=== PATIENT | male | born 1955 | race Caucasian/White ===

== ENCOUNTER 2018-06-08 16:10 | Inpatient (IN) | payer MEDICARE ==
[~2018-06-08] VITALS: Ht 188 cm; Wt 84.8 kg
[2018-06-08] MEDS ORDERED: APAP325 MG PO (16:14)
[2018-06-08] MEDS ORDERED: IPRAT-ALBUT 0.5-3 ML UPD (16:14)
[2018-06-08] MEDS ORDERED: COLACE100 MG PO (16:14)
[2018-06-08] MEDS ORDERED: IMODIUM2 MG PO (16:14)
[2018-06-08] MEDS ORDERED: THIAMINE HCL100 MG PO (16:15)
[2018-06-08] MEDS ORDERED: VENTOLIN HFA18 GM INH (16:15)
[2018-06-08 17:05] LABS: BASOPHILS 0.5 % (0-2); EOSINOPHILS 0.3 % (0-7); HEMOGLOBIN 16.3 g/dL (13.5-17.5); IMMATURE GRANULOCYTES 0.1 % (0-5); LYMPHOCYTES 9.7 % (15-50); MCH 32.3 pg (26.0-34.0); MCHC 34.7 g/dL (31.0-37.0); MCV 93.3 fL (80.0-100.0); MEAN PLATELET VOLUME 9.5 fL (7.4-10.4); MONOCYTES 11.8 % (2-11); NEUTROPHILS 77.6 % (40-80); PLATELET COUNT 183 10x3/uL (130-400); RBC 5.04 10x6/uL (4.20-6.10); RDW 13.5 % (11.5-14.5); WBC 9.8 10x3/uL (4.8-10.8)
[2018-06-08 17:16] LABS: APTT 25.7 SECONDS (22.8-39.4); INR 1.25 (0.85-1.17); PROTIME 15.2 SECONDS (11.6-15.0)
[2018-06-08 18:30] LABS: ALBUMIN 3.9 g/dL (3.4-5.0); ALKALINE PHOSPHATASE 85 U/L (46-116); ALT (SGPT) 15 U/L (10-68); BILIRUBIN - TOTAL 0.45 mg/dL (0.2-1.3); CALC OSMOLALITY 274 mosm/kg (275-300); CALCIUM 8.7 mg/dL (8.5-10.1); CARBON DIOXIDE 25.6 mmol/L (21.0-32.0); CHLORIDE - SERUM 99 mmol/L (98-107); CKMB 1.5 U/L (0.0-3.6); CREATINE KINASE 215 UL (21-232); CREATININE - SERUM 0.8 mg/dL (0.6-1.3); GLUCOSE 115 mg/dL (74-106); POTASSIUM - SERUM 4.1 mmol/L (3.5-5.1); PRO BNP 183 pg/mL (0-125); PROTEIN - SERUM 7.4 g/dL (6.4-8.2); SODIUM 137 mmol/L (136-145); UREA NITROGEN 12 mg/dL (7-18); eGFR NON AFRICAN AMERICAN > 90 mL/min (90-120)
[2018-06-08 18:34] LABS: TROPONIN-I < 0.017 ng/mL (0.000-0.060)
--- NOTE | 2018-06-08 20:15 | NUR ---
PT'S IV ZITHROMAX FINISHED.
--- NOTE | 2018-06-08 20:55 | NUR ---
REC'D TO ROOM 2222 PER W/C A 62 Y/O W/M PER SERVICES DR. BETANCOURT WITH DX PNEUMONIA ALLERGY=PCN IVPATENT LEFT HAND WITH LR AT 125CC'S/HR. SITE CLEAR. SR UP X2 CALL LIGHT WITHIN REACH. BREATH SOUNDS DIMINISHED. O2 ON 2L/M PER NC. ASSESSMENT PER ADMIT PACKET.
[2018-06-08 22:40] VITALS: BP 138/91; BMI 24.0
--- NOTE | 2018-06-09 | NUR ---
PT ACCIDENTLY PULLS OUT IV RESITED TO RT HAND #20 G. X2 ATTEMPTS. RESUMED IV FLUIDS.
[2018-06-09 00:46] VITALS: BP 101/58
[2018-06-09 04:57] VITALS: BP 113/58
--- NOTE | 2018-06-09 06:40 | NUR ---
RESTING QUIETLY DENIES NEEDS.
[2018-06-09 07:03] LABS: ALBUMIN 3.5 g/dL (3.4-5.0); ALKALINE PHOSPHATASE 82 U/L (46-116); ALT (SGPT) 14 U/L (10-68); BILIRUBIN - TOTAL 0.32 mg/dL (0.2-1.3); CALC OSMOLALITY 271 mosm/kg (275-300); CALCIUM 8.2 mg/dL (8.5-10.1); CARBON DIOXIDE 19.7 mmol/L (21.0-32.0); CHLORIDE - SERUM 99 mmol/L (98-107); CREATININE - SERUM 0.7 mg/dL (0.6-1.3); GLUCOSE 147 mg/dL (74-106); POTASSIUM - SERUM 4.7 mmol/L (3.5-5.1); PROTEIN - SERUM 7.1 g/dL (6.4-8.2); SODIUM 135 mmol/L (136-145); UREA NITROGEN 11 mg/dL (7-18); eGFR NON AFRICAN AMERICAN > 90 mL/min (90-120)
[2018-06-09 07:34] LABS: BASOPHILS 0 % (0-2); EOSINOPHILS 0 % (0-7); HEMOGLOBIN 16.3 g/dL (13.5-17.5); IMMATURE GRANULOCYTES 0.2 % (0-5); LYMPHOCYTES 16.6 % (15-50); MCH 32.1 pg (26.0-34.0); MCV 94.5 fL (80.0-100.0); MEAN PLATELET VOLUME 10.6 fL (7.4-10.4); MONOCYTES 5.2 % (2-11); PLATELET COUNT 215 10x3/uL (130-400); RBC 5.08 10x6/uL (4.20-6.10); RDW 13.6 % (11.5-14.5)
[2018-06-09 07:35] LABS: WBC 5.4 10x3/uL (4.8-10.8)
[2018-06-09 08:51] VITALS: BP 107/64
[2018-06-09 11:04] VITALS: Ht 188 cm; Wt 84.8 kg
--- NOTE | 2018-06-09 12:48 | NUR ---
PT RESTING IN BED. NO SIGNS OF DISTRESS. IV TO RIGHT HAND PATENT NO REDNESS OR TENDERNESS. ON 2L NC. ON TELEMETRY 85 NORMAL SINUS. DENIES ANY NEED AT THIS TIME. CALL LIGHT IN REACH. BED LOW POSITION. NO FAMILY AT BEDSIDE AT THIS TIME.
[2018-06-09 13:03] VITALS: BP 126/72
--- NOTE | 2018-06-09 14:47 | MORECARE ---
CASE MANAGEMENT DISCHARGE SUMMARY PATIENT: EUGENIA ADLER UNIT: [id number] ADM DATE: 06/08/18 AGE: 62 : 53 SEX: M ROOM/BED: D.2222 AUTHOR: KRYSTA ONTIVEROS PHYSICIAN: REFERRING PHYSICIAN: CHAUNCEY BETANCOURT MD DATE OF SERVICE: 06/09/18 Discharge Plan Patient Name: EUGENIA ADLER [facility] [facility] 1955 [facility] Disposition: [facility] Facility w Plan Readm Anticipated Discharge Date: Discharge Date: Expected LOS: Initial Reviewer: [email or web address] Initial Review Date: 06/09/2018 Generated: 06/09/18 3:47 pm Patient Name: EUGENIA ADLER Page 97596 at 1447 All edits/amendments must be made on the electronic document DICTATION DATE: 06/09/18 144 ROLL MILL OPERATOR: DARYA 06/09/18 1446 RPT#: [id number] DC DATE: STATUS: ADM IN [facility] [address] [place] [address] END OF REPORT
--- NOTE | 2018-06-09 14:56 | MORECARE ---
CASE MANAGEMENT DISCHARGE SUMMARY PATIENT: EUGENIA HERNANDEZ UNIT: [id number] ADM DATE: 06/08/18 AGE: 62 : 53 SEX: M ROOM/BED: D.2222 AUTHOR: KRYSTA ONTIVEROS PHYSICIAN: REFERRING PHYSICIAN: CHAUNCEY MADRID MD DATE OF SERVICE: 06/09/18 Discharge Plan Patient Name: EUGENIA HERNANDEZ [facility] [facility] 1955 Planned Disposition: [facility] Facility w Plan Readm Anticipated Discharge Date: Discharge Date: Expected LOS: Initial Reviewer: [email or web address] Initial Review Date: 06/09/2018 Generated: 06/09/18 3:56 pm DCPIA - Discharge Planning Initial Assessment Updated by [email or web address]: Annette Walker on 06/09/18 2:50 pm * Is the patient Alert and Oriented? Yes * How many steps to enter\exit or inside your home? 0/0 * PCP Dr. Madrid * Pharmacy N/A * [facility] * Facility [facility] * ADLs Partial Dependent * Partial ADLs (Assistance needed) Ambulation Medication Management * Equipment Wheelchair * Other Equipment States he uses oxygen as needed. He has access to wheelchair and his own walker. * List name and contact numbers for known caregivers / representatives who currently or will assist patient after discharge: Randolph Hernandez - [facility] - [phone] * Verbal permission to speak to the caregivers and representatives has been obtained from the patient. Yes * Community resources currently utilized None * Additional services required to return to the preadmission environment? No * Can the patient safely return to the preadmission environment? Yes * Has this patient been hospitalized within the prior 30 days at any hospital? No Last DP export: 06/09/18 1:47 p Patient Name: EUGENIA HERNANDEZ Page 31841 at 1456 All edits/amendments must be made on the electronic document DICTATION DATE: 06/09/18 FIRE OBSERVER: DARYA 06/09/18 145 RPT#: [id number] DC DATE: STATUS: ADM IN [facility] [address] [place] [address] END OF REPORT
--- NOTE | 2018-06-09 15:08 | MORECARE ---
CASE MANAGEMENT DISCHARGE SUMMARY PATIENT: EUGENIA HERNANDEZ UNIT: [id number] ADM DATE: 06/08/18 AGE: 62 : 53 SEX: M ROOM/BED: D.2222 AUTHOR: RAMA,DOC PHYSICIAN: REFERRING PHYSICIAN: CHAUNCEY MADRID MD DATE OF SERVICE: 06/09/18 Discharge Plan Patient Name: EUGENIA HERNANDEZ [facility] [facility] 1955 Planned Disposition: [facility] w Plan Readm Anticipated Discharge Date: Discharge Date: Expected LOS: Initial Reviewer: [email or web address] Initial Review Date: 06/09/2018 Generated: 06/09/18 4:07 pm Comments DCP- Discharge Planning Updated by [email or web address]: Annette Walker on 06/09/18 1:[address] Patient Name: EUGENIA HERNANDEZ Admission Status: ER Accout number: [id number] Admission Date: 06-08-2018 : 1955 Admission Diagnosis: Attending: CHAUNCEY MADRID Current LOS: 1 Anticipated DC Date: Planned Disposition: [facility] w Plan Readm Primary Insurance: MEDICARE A & B Discharge Planning Comments: CM met with patient to discuss discharge planning/needs, he is alone in the room. States he has lived at [facility] for 3 years. States he is able to ambulate with a walker. States he has gotten weaker lately with illness. States he does have wheelchair access when needed. He wears oxygen as needed. States his plan is to return to [place] via their transportation. I called [facility]rell at [phone] and they will accept him back. aMry states they would like him to stay his 3 midnights to accept him back to a skilled bed so they can strengthen him. She states if they know ahead of time, they will provide transportation and take him back on Wednesday. CM will continue to follow and assist with discharge planning/needs. Fuel Cell Battery Technician: Annette Walker DCPIA - Discharge Planning Initial Assessment Updated by [email or web address]: Annette Walker on 06/09/18 2:50 pm * Is the patient Alert and Oriented? Yes * How many steps to enter\exit or inside your home? 0/0 * PCP Dr. Madrid * Pharmacy N/A * [facility]read[facility] * [facility] * ADLs Partial Dependent * Partial ADLs (Assistance needed) Ambulation Medication Management * Equipment Wheelchair * Other Equipment States he uses oxygen as needed. He has access to wheelchair and his own walker. * List name and contact numbers for known caregivers / representatives who currently or will assist patient after discharge: Randolph Hernandez - son - [phone] * Verbal permission to speak to the caregivers and representatives has been obtained from the patient. Yes * Community resources currently utilized None * Additional services required to return to the preadmission environment? No * Can the patient safely return to the preadmission environment? Yes * Has this patient been hospitalized within the prior 30 days at any hospital? No Last DP export: 06/09/18 1:56 p Patient Name: EUGENIA HERNANDEZ Page [id number] at 1508 All edits/amendments must be made on the electronic document DICTATION DATE: 06/09/181506 MARKET MANAGER: DARYA 06/09/181506 RPT#: [id number] DC DATE: STATUS: ADM IN [facility] [address] [place] [address] END OF REPORT
--- NOTE | 2018-06-09 15:14 | NUR ---
PT RESTING IN BED WITH EYES OPEN. TELEVISION IS TURNED ON. RESPIRATIONS ARE EVEN AND UNLABORED. O2 VIA NC @ 2L. PT DENIES DYSPNEA. LUNGS SOUNDS ARE DIMINISHED AT BASES. BED IS IN THE LOWEST POSITION. SCDS ARE ON. CALL LIGHT AND BEDSIDE TABLE ARE WITHIN REACH.
--- NOTE | 2018-06-09 15:17 | MORECARE ---
CASE MANAGEMENT DISCHARGE SUMMARY PATIENT: EUGENIA HERNANDEZ UNIT: [id number] ADM DATE: 06/08/18 AGE: 62 : 53 SEX: M ROOM/BED: D.2222 AUTHOR: RAMA,DOC PHYSICIAN: REFERRING PHYSICIAN: CHAUNCEY MADRID MD DATE OF SERVICE: 06/09/18 Discharge Plan Patient Name: EUGENIA HERNANDEZ [facility] [facility] 1955 Planned Disposition: [facility] w Plan Readm Anticipated Discharge Date: Discharge Date: Expected LOS: Initial Reviewer: [email or web address] Initial Review Date: 06/09/2018 Generated: 06/09/18 4:17 pm Comments DCP- Discharge Planning Updated by [email or web address]: Annette Walker on 06/09/18 1:[address] Patient Name: EUGENIA HERNANDEZ Admission Status: ER Accout number: [id number] Admission Date: 06-08-2018 : 1955 Admission Diagnosis: Attending: CHAUNCEY MADRID Current LOS: 1 Anticipated DC Date: Planned Disposition: [facility] w Plan Readm Primary Insurance: MEDICARE A & B Discharge Planning Comments: CM met with patient to discuss discharge planning/needs, he is alone in the room. States he has lived at [facility] for 3 years. States he is able to ambulate with a walker. States he has gotten weaker lately with illness. States he does have wheelchair access when needed. He wears oxygen as needed. States his plan is to return to [place] via their transportation. I called [facility] at [phone] and they will accept him back. Mary states they would like him to stay his 3 midnights to accept him back to a skilled bed so they can strengthen him. She states if they know ahead of time, they will provide transportation and take him back on Wednesday. CM will continue to follow and assist with discharge planning/needs. Heat And Frost Insulator Helper: Annette Walker DCPIA - Discharge Planning Initial Assessment Updated by [email or web address]: Annette Walker on 06/09/18 2:50 pm * Is the patient Alert and Oriented? Yes * How many steps to enter\exit or inside your home? 0/0 * PCP Dr. Madrid * Pharmacy N/A * Preadmission Environment [facility] * [facility] * ADLs Partial Dependent * Partial ADLs (Assistance needed) Ambulation Medication Management * Equipment Wheelchair * Other Equipment States he uses oxygen as needed. He has access to wheelchair and his own walker. * List name and contact numbers for known caregivers / representatives who currently or will assist patient after discharge: Randolph Hernandez - son - [phone] * Verbal permission to speak to the caregivers and representatives has been obtained from the patient. Yes * Community resources currently utilized None * Additional services required to return to the preadmission environment? No * Can the patient safely return to the preadmission environment? Yes * Has this patient been hospitalized within the prior 30 days at any hospital? No External Providers External Provider: [facility] Next Contact Date: Service Request Date: Service Type: Resolution: Reviewer: Comments: Last DP export: 06/09/18 2:08 p Patient Name: EUGENIA HERNANDEZ Page 14648 at 1517 All edits/amendments must be made on the electronic document DICTATION DATE: 06/09/181516 RUSSIAN LANGUAGE INSTRUCTOR: DARYA 06/09/181516 RPT#: [id number] DC DATE: STATUS: ADM IN [facility] [address] [place] [address] END OF REPORT
[2018-06-09 16:30] VITALS: BP 138/75
--- NOTE | 2018-06-09 19:00 | NUR ---
REPORT RECEIVED AND CARE OF PT ASSUMED. PT LYING IN HIGH SUMNER'S POSITION WATCHING TV. IV IN RIGHT HAND PATENT WITH ABX INFUSING. TELEMETRY IN PLACE AND READING 82 SR AT THIS ASSESSMENT. O2 IN USE VIA NC AT 2L. WILL MONITOR FOR NEEDS.
[2018-06-09 20:31] VITALS: BP 127/76
--- NOTE | 2018-06-09 20:45 | NUR ---
HS MEDICAITONS GIVEN. PT DECLINED HS SNACK. WILL CONTINUE TO MONITOR FOR NEEDS.
[2018-06-10 00:54] VITALS: BP 134/75
[2018-06-10 04:12] LABS: BASOPHILS 0.3 % (0-2); EOSINOPHILS 0.9 % (0-7); HEMATOCRIT 43.3 % (42.0-54.0); HEMOGLOBIN 14.7 g/dL (13.5-17.5); LYMPHOCYTES 23.7 % (15-50); MCH 31.7 pg (26.0-34.0); MCHC 33.9 g/dL (31.0-37.0); MCV 93.5 fL (80.0-100.0); MEAN PLATELET VOLUME 9.7 fL (7.4-10.4); MONOCYTES 16.4 % (2-11); NEUTROPHILS 58.7 % (40-80); PLATELET COUNT 210 10x3/uL (130-400); RBC 4.63 10x6/uL (4.20-6.10); RDW 13.5 % (11.5-14.5); WBC 6.7 10x3/uL (4.8-10.8)
[2018-06-10 04:21] LABS: CALCIUM 7.9 mg/dL (8.5-10.1); CHLORIDE - SERUM 101 mmol/L (98-107); CREATININE - SERUM 0.8 mg/dL (0.6-1.3); SODIUM 140 mmol/L (136-145); UREA NITROGEN 13 mg/dL (7-18); eGFR NON AFRICAN AMERICAN > 90 mL/min (90-120)
[2018-06-10 04:22] LABS: CALC OSMOLALITY 278 mosm/kg (275-300); GLUCOSE 92 mg/dL (74-106); POTASSIUM - SERUM 3.9 mmol/L (3.5-5.1)
[2018-06-10 09:46] VITALS: BP 119/76
--- NOTE | 2018-06-10 15:13 | NUR ---
PT WATCHING TV WITH NO VOICED COMPLAINTS. STATES NO SOB OR COUGH NOTED. CALL LIGHT IN REACH
[2018-06-10 19:00] VITALS: BP 141/78
--- NOTE | 2018-06-10 19:00 | NUR ---
REPORT RECEIVED AND CARE OF PT ASSUMED. PT SITTING UP IN BED WATCHING TV. IV IN RIGHT HAND SALINE LOCKED. TELEMETRY IN PLACE AND READING SR AT THIS ASSESSMENT. WILL MONITOR KAREN FOR NEEDS.
--- NOTE | 2018-06-10 21:01 | NUR ---
HS MEDICATIONS GIVEN. WILL CONTINUE TO MONITOR FOR NEEDS.
[2018-06-11] VITALS: BP 138/75
[2018-06-11 03:00] VITALS: BP 141/56
[2018-06-11] MEDS ORDERED: ZITHROMAX 500M500 MG PO (08:28)
[2018-06-11] MEDS ORDERED: IPRAT-ALBUT 0.5-3 ML UPD (08:29)
[2018-06-11] MEDS ORDERED: ROCEPHIN 1 GM/D51 G1 IM (08:29)
[2018-06-11] MEDS ORDERED: FLORAJEN3 CAPS460 MG PO (08:31)
[2018-06-11] MEDS ORDERED: ROBITUSSIN DM 110 ML PO (08:31)
[2018-06-11 08:55] VITALS: BP 110/68
--- NOTE | 2018-06-11 10:25 | MORECARE ---
CASE MANAGEMENT DISCHARGE SUMMARY PATIENT: EUGENIA HERNANDEZ UNIT: [id number] ADM DATE: 06/08/18 AGE: 62 : 53 SEX: M ROOM/BED: D.2222 AUTHOR: RAMA,DOC PHYSICIAN: REFERRING PHYSICIAN: CHAUNCEY MADRID MD DATE OF SERVICE: 06/11/18 Discharge Plan Patient Name: EUGENIA HERNANDEZ [facility]:[place] : 1955 Planned Disposition: [facility] w Plan Readm Anticipated Discharge Date: 06/11/18 Discharge Date: Expected LOS: 3 Initial Reviewer: [email or web address] Initial Review Date: 06/09/2018 Generated: 06/11/18 11:25 am Comments DCP- Discharge Planning Updated by [id number]: Annette Walker on 06/09/18 1:[address] Patient Name: EUGENIA HERNANDEZ Admission Status: ER Accout number: [id number] Admission Date: 06-08-2018 : 1955 Admission Diagnosis: Attending: CHAUNCEY MADRID Current LOS: 1 Anticipated DC Date: Planned Disposition: [facility] w Plan Readm Primary Insurance: MEDICARE A & B Discharge Planning Comments: CM met with patient to discuss discharge planning/needs, he is alone in the room. States he has lived at [facility] for 3 years. States he is able to ambulate with a walker. States he has gotten weaker lately with illness. States he does have wheelchair access when needed. He wears oxygen as needed. States his plan is to return to [place] via their transportation. I called Mary Harrell at [phone] and they will accept him back. Mary states they would like him to stay his 3 midnights to accept him back to a skilled bed so they can strengthen him. She states if they know ahead of time, they will provide transportation and take him back on Wednesday. CM will continue to follow and assist with discharge planning/needs. Reconstructive Dentist: Annette Walker DCPIA - Discharge Planning Initial Assessment Updated by [email or web address]: Annette Walker on 06/09/18 2:50 pm * Is the patient Alert and Oriented? Yes * How many steps to enter\exit or inside your home? 0/0 * PCP Dr. Madrid * Pharmacy N/A * [facility] * Facility Name [facility] * ADLs Partial Dependent * Partial ADLs (Assistance needed) Ambulation Medication Management * Equipment Wheelchair * Other Equipment States he uses oxygen as needed. He has access to wheelchair and his own walker. * List name and contact numbers for known caregivers / representatives who currently or will assist patient after discharge: Randolph Hernandez - [facility] - [phone] * Verbal permission to speak to the caregivers and representatives has been obtained from the patient. Yes * Community resources currently utilized None * Additional services required to return to the preadmission environment? No * Can the patient safely return to the preadmission environment? Yes * Has this patient been hospitalized within the prior 30 days at any hospital? No Coverage Notice Reviewer: [id number] Yevgeniy Walker Notice Issued Date-Time: 06/10/2018 10:32 Notice Type: IM Discharge Notice Notice Delivered To: Patient Relationship to Patient: Self Vacuum Repairer Name: Delivery Method: HAND - Hand Delivered Rosi Days: Prior Verbal Notification: Recipient Understood Notice: Yes Recipient Signature: Yes Med Rec Note Co-signed by Attending: Coverage Notice Comment: IMM explained, signed, copy given, original placed in MR Last DP export: 06/09/18 2:17 p Patient Name: EUGENIA HERNANDEZ Page 95938 at 1025 All edits/amendments must be made on the electronic document DICTATION DATE: 06/11/18 1025 REAL ESTATE PHOTOGRAPHER: DARYA 06/11/18 1025 RPT#: [id number] DC DATE: STATUS: ADM IN [facility] [address] [place] [address] END OF REPORT
--- NOTE | 2018-06-11 10:32 | MORECARE ---
CASE MANAGEMENT DISCHARGE SUMMARY PATIENT: EUGENIA HERNANDEZ UNIT: [id number] ADM DATE: 06/08/18 AGE: 62 : 51 SEX: M ROOM/BED: D.2222 AUTHOR: RAMA,DOC PHYSICIAN: REFERRING PHYSICIAN: CHAUNCEY MADRID MD DATE OF SERVICE: 06/11/18 Discharge Plan Patient Name: EUGENIA HERNANDEZ [facility]:[place] : 1955 Planned Disposition: [facility] w Plan Readm Anticipated Discharge Date: 06/11/18 Discharge Date: Expected LOS: 3 Initial Reviewer: [email or web address] Initial Review Date: 06/09/2018 Generated: 06/11/18 11:32 am Comments DCP- Discharge Planning Updated by [email or web address]: Sarah Valencia on 06/11/18 9:[address] 1005 CM CALLED [facility]. SPOKE WITH HAYES REGARDING DISCHARGE FOR TODAY. THEY CAN ACCEPT THE PATIENT BACK. THE FACILITY PRODUCTION PLANNING SUPERVISOR IS AVAILABLE. CM FAXED DISCHARGE SUMMARY AND CLINICAL UPDATE TO [phone]. SPOKE WITH REUBEN THE PRIMARY NURSE. ADVISED THE [facility] IS AVAILABLE TO TRANSPORT SOON PATIENT CAN BE PREPARED FOR DISCHARGE. PROVIDED THE FACILITY PHONE NUMBER FOR NURSING REPORT. DCP- Discharge Planning Updated by [email or web address]: Annette Walker on 06/09/18 1:[address] Patient Name: EUGENIA HERNANDEZ Admission Status: ER Accout number: [id number] Admission Date: 06-08-2018 : 1955 Admission Diagnosis: Attending: CHAUNCEY MADRID Current LOS: 1 Anticipated DC Date: Planned Disposition: [facility] Facility w Plan Readm Primary Insurance: MEDICARE A & B Discharge Planning Comments: CM met with patient to discuss discharge planning/needs, he is alone in the room. States he has lived at [facility] for 3 years. States he is able to ambulate with a walker. States he has gotten weaker lately with illness. States he does have wheelchair access when needed. He wears oxygen as needed. States his plan is to return to [place] via their transportation. I called Mary Harrell at [phone] and they will accept him back. Mary states they would like him to stay his 3 midnights to accept him back to a skilled bed so they can strengthen him. She states if they know ahead of time, they will provide transportation and take him back on Wednesday. CM will continue to follow and assist with discharge planning/needs. Jumpbasting Facing Baster: Annette Walker DCPIA - Discharge Planning Initial Assessment Updated by [email or web address]: Annette Walker on 06/09/18 2:50 pm * Is the patient Alert and Oriented? Yes * How many steps to enter\exit or inside your home? 0/0 * PCP Dr. Madrid * Pharmacy N/A * Preadmission Environment [facility] * Facility Name [facility] * ADLs Partial Dependent * Partial ADLs (Assistance needed) Ambulation Medication Management * Equipment Wheelchair * Other Equipment States he uses oxygen as needed. He has access to wheelchair and his own walker. * List name and contact numbers for known caregivers / representatives who currently or will assist patient after discharge: Randolph Hernandez - [facility] - [phone] * Verbal permission to speak to the caregivers and representatives has been obtained from the patient. Yes * Community resources currently utilized None * Additional services required to return to the preadmission environment? No * Can the patient safely return to the preadmission environment? Yes * Has this patient been hospitalized within the prior 30 days at any hospital? No Coverage Notice Reviewer: [email or web address] - Annette Walker Notice Issued Date-Time: 06/10/2018 10:32 Notice Type: IM Discharge Notice Notice Delivered To: Patient Relationship to Patient: Self Chief Communications Officer Name: Delivery Method: HAND - Hand Delivered Rosi Days: Prior Verbal Notification: Recipient Understood Notice: Yes Recipient Signature: Yes Med Rec Note Co-signed by Attending: Coverage Notice Comment: IMM explained, signed, copy given, original placed in MR Last DP export: 06/11/18 9:25 a Patient Name: EUGENIA HERNANDEZ Page 66075 at 1032 All edits/amendments must be made on the electronic document DICTATION DATE: 06/11/18 1031 EMPLOYMENT OFFICE CLERK: DARYA 06/11/18 1031 RPT#: [id number] DC DATE: STATUS: ADM IN [facility] [address] [place] [address] END OF REPORT
[2018-06-11 12:23] VITALS: BP 133/72
--- NOTE | 2018-06-11 12:41 | NUR ---
REPORT CALLED TO H[facility] AT [facility] [place]. QUESTIONS OVER MEDS ANSWERED.
--- NOTE | 2018-06-11 12:51 | NUR ---
PATIENT RECIEVED DC INSTRUCTIONS. VERBALIZED UNDERSTANDING. NO QUESTIONS AT THIS TIME. PRESCRIPTIONS IN WITH DC INSTRUCTIONS IN [place] FOR [facility]. PATIENT SITTING UP IN BED EATING. CALL LIGHT WITHIN REACH.
--- NOTE | 2018-06-11 13:20 | NUR ---
IV REMOVED BY MARIANO LUTZ. PATIENT AWAITING DC TRANSPORTATION FROM [facility]
--- NOTE | 2018-06-14 10:08 | MORECARE ---
CASE MANAGEMENT DISCHARGE SUMMARY PATIENT: EUGENIA HERNANDEZ UNIT: [id number] ADM DATE: 06/08/18 AGE: 62 : 51 SEX: M ROOM/BED: D.2222 AUTHOR: RAMA,DOC PHYSICIAN: REFERRING PHYSICIAN: CHAUNCEY MADRID MD DATE OF SERVICE: 06/14/18 Discharge Plan Patient Name: EUGENIA HERNANDEZ Facility: [facility]:[place] : 1955 Planned Disposition: [facility] w Plan Readm Anticipated Discharge Date: 06/11/18 Discharge Date: 06/11/2018 Expected LOS: 3 Initial Reviewer: [email or web address] Initial Review Date: 06/09/2018 Generated: 06/14/18 11:08 am Comments DCP- Discharge Planning Updated by [email or web address]: Sarah Valencia on 06/11/18 9:[address] 1005 CM CALLED [facility]. SPOKE WITH HAYES REGARDING DISCHARGE FOR TODAY. THEY CAN ACCEPT THE PATIENT BACK. THE FACILITY TRAINMAN IS AVAILABLE. CM FAXED DISCHARGE SUMMARY AND CLINICAL UPDATE TO [phone]. SPOKE WITH REUBEN THE PRIMARY NURSE. ADVISED THE [facility] IS AVAILABLE TO TRANSPORT SOON PATIENT CAN BE PREPARED FOR DISCHARGE. PROVIDED THE FACILITY PHONE NUMBER FOR NURSING REPORT. DCP- Discharge Planning Updated by [email or web address]: Annette Walker on 06/09/18 1:[address] Patient Name: EUGENIA HERNANDEZ Admission Status: ER Accout number: [id number] Admission Date: 06-08-2018 : 1955 Admission Diagnosis: Attending: CHAUNCEY MADRID Current LOS: 1 Anticipated DC Date: Planned Disposition: [facility] w Plan Readm Primary Insurance: MEDICARE A & B Discharge Planning Comments: CM met with patient to discuss discharge planning/needs, he is alone in the room. States he has lived at [facility] for 3 years. States he is able to ambulate with a walker. States he has gotten weaker lately with illness. States he does have wheelchair access when needed. He wears oxygen as needed. States his plan is to return to [facility] via their transportation. I called [facility] at [phone] and they will accept him back. Mary states they would like him to stay his 3 midnights to accept him back to a skilled bed so they can strengthen him. She states if they know ahead of time, they will provide transportation and take him back on Wednesday. CM will continue to follow and assist with discharge planning/needs. Bleacher Lard: Annette Walker DCPIA - Discharge Planning Initial Assessment Updated by [email or web address]: Annette Walker on 06/09/18 2:50 pm * Is the patient Alert and Oriented? Yes * How many steps to enter\exit or inside your home? 0/0 * PCP Dr. Madrid * Pharmacy N/A * Preadmission Environment [facility] * [facility] * ADLs Partial Dependent * Partial ADLs (Assistance needed) Ambulation Medication Management * Equipment Wheelchair * Other Equipment States he uses oxygen as needed. He has access to wheelchair and his own walker. * List name and contact numbers for known caregivers / representatives who currently or will assist patient after discharge: Randolph Hernandez - [facility] - [phone] * Verbal permission to speak to the caregivers and representatives has been obtained from the patient. Yes * Community resources currently utilized None * Additional services required to return to the preadmission environment? No * Can the patient safely return to the preadmission environment? Yes * Has this patient been hospitalized within the prior 30 days at any hospital? No Coverage Notice Reviewer: [id number] - Annette Walker Notice Issued Date-Time: 06/10/2018 10:32 Notice Type: IM Discharge Notice Notice Delivered To: Patient Relationship to Patient: Self Top Collar Baster Name: Delivery Method: HAND - Hand Delivered Rosi Days: Prior Verbal Notification: Recipient Understood Notice: Yes Recipient Signature: Yes Med Rec Note Co-signed by Attending: Coverage Notice Comment: IMM explained, signed, copy given, original placed in MR Last DP export: 06/11/18 9:32 a Patient Name: EUGENIA HERNANDEZ Page [id number] at 1008 All edits/amendments must be made on the electronic document DICTATION DATE: 06/14/18 1007 BUMP GRADER OPERATOR: DARYA 06/14/18 1007 RPT#: [id number] DC DATE:06/11/18 STATUS: DIS IN [address] [place] [address] END OF REPORT
== END 2018-06-11 15:30 | DRG 190 ==
LOC: D.ER 16:10 → D.EDHOLD 19:06 → D.MS 20:23 → D.ER 20:33 → D.MS 06-11 15:30
PROVIDERS: Family Medicine; ADMIT Family Medicine
DX: J44.0 Chronic obstructive pulmonary disease with (acute) lower respiratory infection (principal); J18.9 Pneumonia, unspecified organism; J44.1 Chronic obstructive pulmonary disease with (acute) exacerbation; F03.90 Unspecified dementia, unspecified severity, without behavioral disturbance, psychotic disturbance, mood disturbance, and anxiety; Z72.0 Tobacco use; R53.81 Other malaise

== ENCOUNTER → 2020-09-17 18:25 | Outpatient (CLI) | payer MEDICARE ==
[2018-06-09 11:04] VITALS: BMI 24.0
[~2020-09-17 18:25] MED LIST: APAP325 MG PO; COLACE100 MG PO; FLORAJEN3 CAPS460 MG PO; IMODIUM2 MG PO; IPRAT-ALBUT 0.5-3 ML UPD; ROBITUSSIN DM 110 ML PO; ROCEPHIN 1 GM/D51 G1 IM; THIAMINE HCL100 MG PO; VENTOLIN HFA18 GM INH; ZITHROMAX 500M500 MG PO
[2020-09-17 19:05] LABS: BASOPHILS 1.2 % (0-2); EOSINOPHILS 2.7 % (0-7); HEMOGLOBIN 14.6 g/dL (13.5-17.5); IMMATURE GRANULOCYTES 0.8 % (0-5); LYMPHOCYTE ABS# 2.72 10x3/uL (1.32-3.57); LYMPHOCYTES 35.5 % (15-50); MCH 30.4 pg (26.0-34.0); MCHC 31.7 g/dL (31.0-37.0); MCV 95.6 fL (80.0-100.0); NEUTROPHIL ABS# 3.75 10x3/uL (1.78-5.38); NEUTROPHILS 48.8 % (40-80); RBC 4.81 10x6/uL (4.20-6.10); RDW 14.2 % (11.5-14.5); WBC 7.7 10x3/uL (4.8-10.8)
[2020-09-17 19:08] LABS: PLATELET COUNT 291 10x3/uL (130-400)
[2020-09-17 19:41] LABS: ALBUMIN 3.6 g/dL (3.4-5.0); ALKALINE PHOSPHATASE 107 U/L (30-120); ALT (SGPT) 14 U/L (10-68); BILIRUBIN - TOTAL 0.27 mg/dL (0.2-1.3); CALC OSMOLALITY 277 mosm/kg (275-300); CALCIUM 8.9 mg/dL (8.5-10.1); CARBON DIOXIDE 25.8 mmol/L (21.0-32.0); CHLORIDE - SERUM 103 mmol/L (98-107); CREATININE - SERUM 0.9 mg/dL (0.6-1.3); GLUCOSE 100 mg/dL (74-106); POTASSIUM - SERUM 4.6 mmol/L (3.5-5.1); PROTEIN - SERUM 6.7 g/dL (6.4-8.2); SODIUM 140 mmol/L (136-145); THYROID STIMULATING HORMONE 2.03 uIU/mL (0.36-3.74); UREA NITROGEN 10 mg/dL (7-18); eGFR NON AFRICAN AMERICAN 89 mL/min (90-120)
== END | disposition home or self-care (01) ==
LOC: D.LABREF 18:25
PROVIDERS: ATTEND Family Medicine
DX: D55.9 Anemia due to enzyme disorder, unspecified (principal); J44.1 Chronic obstructive pulmonary disease with (acute) exacerbation; D51.3 Other dietary vitamin B12 deficiency anemia